=== PATIENT | male | born 1965 | race Caucasian/White ===

== ENCOUNTER 2024-03-13 15:22 | Emergency (ER) | payer OTHER, SELFPAY ==
[2024-03-13] VITALS (23 sets, daily range): BP systolic 115–165; BP diastolic 64–90; PULSE 71–91; RESP 13–23; TEMP 36.7–37.2; O2SAT 91–98; BMI 27.3
--- NOTE | 2024-03-13 15:37 | DI.RAD.S_ITS ---
PROCEDURE: XR SHOULDER RT MIN 2V INDICATIONS: poss dislocation after fall TECHNIQUE: 3 views of the shoulder were acquired. COMPARISON: None. FINDINGS: Bones: There is anterior dislocation of the humeral head with associated tuberosity fracture. No discrete fracture of the glenoid is identified. The acromioclavicular joint is maintained. No suspicious bony lesions. Visualized ribs appear intact. Soft tissues: No suspicious soft tissue calcifications. IMPRESSION: Glenohumeral fracture/dislocation. Dictated by: Nilam Pemberton M.D. on 03/13/2024 at 14:57 Approved by: Nilam Pemberton M.D. on 03/13/2024 at 14:59
--- NOTE | 2024-03-13 16:40 | ED.UPPEXIN ---
HPI - Extremity Injury (Upper) General Chief Complaint: Extremity Injury, Upper Stated Complaint: poss dislocated shoulder Time Seen by Provider: 03/13/24 16:21 Source: patient, RN notes reviewed and old records reviewed Mode of arrival: Wheelchair Limitations: no limitations History of Present Illness HPI narrative: 58-year-old male remote history of colorectal cancer had resection and reversal with chemotherapy patient presents today was working on a ladder fell kind of down words and forward he states sort of on an outstretched arm on his right shoulder. States he did not hit his head denies headache denies neck or back pain. Denies any chest pain or shortness of breath states all of his pain is in his shoulder. Has some bruising and abrasions on his lower extremities but states he has been walking without pain. Denies any abdominal back or flank pain. No loss of consciousness. No nausea or vomiting. No other GI or urinary symptoms. Patient was in the [facility], was seen by EMS in the field did receive Zofran ODT, had bandage placed in his lower extremity and self transported via [place] here to the hospital. Fall occurred about 11:05 a.m. today. Patient states he has not on any daily medications. Does not have a prior history of ostomy with reversal and port around 2004 when he had cancer treatment. Is not on any anticoagulants. Denies any daily prescription medications. No known drug allergies. Denies tobacco, no alcohol or recreational drugs. Related Data Allergies Allergy/AdvReac Type Severity Reaction Status Date / Time No Known Drug Allergies Allergy Verified 03/13/24 15:32 Review of Systems Review of Systems ROS Unobtainable: All systems reviewed & are unremarkable except as noted in HPI and below Patient History Social History Smoking Status: Never smoker Smoking Status: Never smoker Exam Narrative Exam Narrative: GEN: Patient appears in mild distress. HEAD: No evidence of trauma, no raccoon/Painter sign. NECK: Nontender, painless range of motion, trachea midline Negative Nexus criteria, no midline line tenderness, distracting injury, altered mental status, neuro deficit, recent EtOH. EYES: PERRLA, EOMI ENT: External inspection normal, trachea is midline, TM's are normal no hemotypanum, Nares are clear, no septal hematoma, no dental or oral injury, airway is normal and with normal occlusion, No bony tenderness RESP: Chest is nontender and has symmetric movement, no ecchymosis, breath sounds are normal no crackles, wheezes or rales CVS: Heart sounds are normal, no murmur noted, No JVD. ABG/GI: Nontender, soft, normal bowel sounds, no distention, no organomegaly, pelvic rock is negative NEURO: Oriented AOx3, neuro is grossly intact, sensation and motor is normal all 4 extremities moving, cranial nerves II through XII are intact, GCS is 15 PSYCH: Normal mood and affect SKIN: Intact, warm and dry, no crepitus and without decubitus BACK: No CVA tenderness, no vertebral tenderness, no step-off's, no crepitus EXT: Patient was deformity of the right shoulder, equal optometry doctor bilaterally. Tenderness over the shoulder no other bony tenderness of the upper or lower extremities. Hips are nontender, no pedal edema, normal color and temperature, normal range of motion of extremities with normal tendon exam, 2+ pulses in all four extremities. Patient has some ecchymosis of the left anterior saenz but is nontender over the bone. Does have abrasion over the right anterior calf/saenz. Initial Vital Signs Initial Vital Signs: Vital Signs Temperature 98.9 F 03/13/24 15:32 Pulse Rate 71 03/13/24 15:32 Respiratory Rate 17 03/13/24 15:32 Blood Pressure 144/80 H 03/13/24 15:32 Pulse Oximetry 97 03/13/24 15:32 Oxygen Delivery Method Room Air 03/13/24 15:32 Procedures Orthopedic Joint Reduction Joint #1: Time Out Performed: Yes Side: right Joint Reduction Location: shoulder Analgesia: procedural sedation Shoulder Technique Used (if applicable): traction/counter-traction, scapula manipulation and external rotation Post-reduction neuro exam: intact and no change Post-reduction vascular: no change Post Reduction X-Ray Obtained: Yes Post Reduction X-Ray Results: reduced Splint Applied: Yes (Sling placed) Patient Tolerated Procedure: Well and No complications Procedural Sedation Consent signed: Yes Time out performed: Yes Indication: fracture/dislocation reduction ASA Class: II Mallampati Airway Classification: Class II Time of Last PO Intake: 13:45 Preparation: fiber designer applied, pulse oximeter, capnometry used, supplemental O2 applied, suction/airway equipment at bedside and IV secured IV Propofol dose (mg): 300 ED Sedation Level: Moderate (Concious) Patient Tolerated Procedure: Well Complications: hypoxia Interventions: Airway repositioned Additional Comments: Patient had initially 100 mg of propofol, then given 50 mg aliquots for a total of 300 mg. Patient's was still resisting movement and conversant at 250 mg propofol. Course Orders Ordered: ED Orders 03/13/24 15:37 XR shoulder RT min 2V Stat 03/13/24 16:39 XR chest 1V Stat 03/13/24 18:38 XR shoulder LT 1V Stat Discontinued Medications Hydrocodone Bitart/Acetaminophen (Hydrocodone/Acet 5/325 Prepack) 1 bottle MISC DIRECTED ONE Stop: 03/13/24 19:24 Sodium Chloride (Normal Saline 0.9%) 500 mls @ 1,000 mls/hr IV BOLUS ONE Stop: 03/13/24 17:08 Last Infusion: 03/13/24 17:15 Dose: Infused Documented By: Admin: 03/13/24 16:45 Dose: 1,000 mls/hr Documented By: NATHAN Morphine Sulfate (Morphine 4 Mg/Ml Inj) 4 mg IV NOW ONE Stop: 03/13/24 16:40 Last Admin: 03/13/24 16:45 Dose: 4 mg Documented By: NATHAN Morphine Sulfate (Morphine 4 Mg/Ml Inj) 4 mg IV NOW ONE Stop: 03/13/24 18:14 Last Admin: 03/13/24 19:19 Dose: Not Given Documented By: ANNETTE Propofol (Propofol 200 Mg/20 Ml Vial) 85 mg 1 mg/kg (85 mg) IV NOW ONE Stop: 03/13/24 17:27 Last Admin: 03/13/24 18:27 Dose: 85 mg Documented By: [facility] Vital Signs Vital signs: Vital Signs - 8 hr 03/13/24 15:32 03/13/24 16:50 03/13/24 17:00 Temperature 98.9 F Pulse Rate 71 88 88 Respiratory Rate 17 22 15 Blood Pressure 144/80 H Pulse Oximetry 97 98 98 Oxygen Delivery Method Room Air 03/13/24 17:00 03/13/24 17:30 03/13/24 17:30 Temperature Pulse Rate 82 Respiratory Rate 16 Blood Pressure 150/83 H 165/89 H Pulse Oximetry 97 Oxygen Delivery Method 03/13/24 17:40 03/13/24 17:40 03/13/24 17:55 Temperature Pulse Rate 80 77 Respiratory Rate 13 19 Blood Pressure 156/84 H Pulse Oximetry 97 97 Oxygen Delivery Method 03/13/24 17:55 03/13/24 18:00 03/13/24 18:00 Temperature Pulse Rate 78 Respiratory Rate 17 Blood Pressure 155/89 H 134/82 Pulse Oximetry 96 Oxygen Delivery Method 03/13/24 18:05 03/13/24 18:05 03/13/24 18:10 Temperature Pulse Rate 81 Respiratory Rate 17 Blood Pressure 142/86 H 148/90 H Pulse Oximetry 96 Oxygen Delivery Method 03/13/24 18:10 03/13/24 18:15 03/13/24 18:15 Temperature Pulse Rate 80 79 Respiratory Rate 16 15 Blood Pressure 143/84 H Pulse Oximetry 97 96 Oxygen Delivery Method 03/13/24 18:18 03/13/24 18:20 03/13/24 18:20 Temperature Pulse Rate 80 78 Respiratory Rate 16 14 Blood Pressure 145/83 H Pulse Oximetry 95 Oxygen Delivery Method 03/13/24 18:25 03/13/24 18:25 03/13/24 18:26 Temperature 98.1 F Pulse Rate 79 76 Respiratory Rate 14 16 Blood Pressure 153/87 H 139/85 Pulse Oximetry 97 Oxygen Delivery Method 03/13/24 18:30 03/13/24 18:30 03/13/24 18:35 Temperature Pulse Rate 91 H 84 Respiratory Rate Blood Pressure 145/84 H Pulse Oximetry 91 92 Oxygen Delivery Method 03/13/24 18:35 03/13/24 18:40 03/13/24 18:40 Temperature Pulse Rate 88 Respiratory Rate Blood Pressure 146/80 H 119/64 Pulse Oximetry 93 Oxygen Delivery Method 03/13/24 18:45 03/13/24 18:45 03/13/24 18:50 Temperature Pulse Rate 84 Respiratory Rate 22 Blood Pressure 115/76 116/74 Pulse Oximetry 96 Oxygen Delivery Method 03/13/24 18:50 03/13/24 18:55 03/13/24 18:55 Temperature Pulse Rate 87 87 Respiratory Rate 23 22 Blood Pressure 128/77 Pulse Oximetry 96 96 Oxygen Delivery Method 03/13/24 18:59 03/13/24 18:59 03/13/24 19:00 Temperature Pulse Rate 81 82 Respiratory Rate 15 Blood Pressure 139/74 Pulse Oximetry 97 97 Oxygen Delivery Method 03/13/24 19:05 03/13/24 19:05 Temperature Pulse Rate 84 Respiratory Rate Blood Pressure 136/85 Pulse Oximetry 97 Oxygen Delivery Method MDM - Extremity Injury (Upper) Lab Data Labs: Point of Care Testing Glucose POC 109 Imaging Data Chest x-ray: Radiologist's Impression: Close Chest X-Ray (Signed) NilayNilam - 03/13/24 Shoulder X-Ray (Signed) NilayNilam - 03/13/24 Launch?[address] [address] XRay Report Signed Patient: Kirby Ribeiro MR#: [id number] : 1965 Acct:[id number] Age/Sex: 58 / M Date of Service: 03/13/24 Loc: ED Accession Number: [id number] Procedure: XR chest 1V Ordering Provider: Britney Bass D.O. PROCEDURE: XR CHEST 1V INDICATIONS: fall from ladder TECHNIQUE: One view of the chest was acquired. COMPARISON: None. FINDINGS: Surgical changes and devices: None. Lungs and pleura: Lungs are clear. No pleural effusions or pneumothorax. Mediastinum: Mediastinal contours appear normal. Heart size is normal. Bones and chest wall: No suspicious bony lesions. Overlying soft tissues appear unremarkable. IMPRESSION: No acute cardiopulmonary abnormality is seen. Dictated by: Nilam Pemberton M.D. on 03/13/2024 at 16:13 Approved by: Nilam Pemberton M.D. on 03/13/2024 at 16:14 Extremity x-ray #1: Radiologist's Impression: Kirby Ribeiro??58??M??1965 ? Allergy/Adv: No Known Drug Allergies Close Chest X-Ray (Signed) HejanisNilam - 03/13/24 Shoulder X-Ray (Signed) NilayNilam - 03/13/24 Launch?[address] [address] XRay Report Signed Patient: Kirby Ribeiro MR#: [id number] : 1965 Acct:[id number] Age/Sex: 58 / M Date of Service: 03/13/24 Loc: ED Accession Number: [id number] Procedure: XR shoulder RT min 2V Ordering Provider: Britney Bass D.O. PROCEDURE: XR SHOULDER RT MIN 2V INDICATIONS: poss dislocation after fall TECHNIQUE: 3 views of the shoulder were acquired. COMPARISON: None. FINDINGS: Bones: There is anterior dislocation of the humeral head with associated tuberosity fracture. No discrete fracture of the glenoid is identified. The acromioclavicular joint is maintained. No suspicious bony lesions. Visualized ribs appear intact. Soft tissues: No suspicious soft tissue calcifications. IMPRESSION: Glenohumeral fracture/dislocation. Dictated by: Nilam Pemberton M.D. on 03/13/2024 at 14:57 Approved by: Nilam Pemberton M.D. on 03/13/2024 at 14:59 MDM Narrative Medical decision making narrative: 58-year-old male had a fall from about 6 or 7 ft about 11:00 a.m. this morning fell sort of outstretched arm has a what looks like a right shoulder dislocation. Denies other injuries other than some ecchymosis and abrasion to his anterior legs. He has been ambulatory had no loss of consciousness denies headache, neck pain or back pain. States he did not hit his head. Did fall sort of forward. Denies any chest pain but based on his mechanism chest x-ray was obtained. Patient is hemodynamically stable here in the department. Patient states tetanus is up-to-date. Shoulder x-ray shows anterior dislocation humeral head with the associated tuberosity fracture no discrete fracture of the glenoid identified AC joint is maintained. Chest x-ray is negative for acute change. Dr. Noemi Pruett, orthopedic surgery reviewed patient's images. Does see tuberosity fracture but states okay to go ahead and attempt reduction. If there is difficulty or inability to reduce asked for re-contact. Plan for patient to follow up does note there is potential for patient to have worsening of the fracture. Discussed with patient he was agreeable for procedural sedation and reduction. Reviewed that there is a fracture noted but recommended by Orthopedic surgery to go ahead and attempt. Patient is agreeable. Discussed risks versus benefits. Patient did have a dose of pain medication prior to reduction has had improvement in pain. Patient on repeat imaging appears reduced. Repeat shows grossly anatomic alignment postreduction. Reviewed findings with the patient after he was little bit more awake. Patient lives part-time in [facility] and part-time in [place] so was given disc with his images so he has he was available for follow up as needed. Placed in sling he feels much more comfortable we will give a short course of pain medication for the next 24 hours and discussed return precautions. Nursing dress the abrasion/skin tear on his anterior saenz. Discharge Plan Departure Patient Disposition: Home Clinical Impression: Anterior shoulder dislocation, Fracture of greater tuberosity of humerus Instructions: DI for Shoulder Dislocation Activity Restrictions/Additional Instructions: Follow up with Orthopedic surgery for recheck. I would recommend following up to have physical therapy to help strengthen the muscles of your shoulder. You did have a fracture to the tuberosity of the humerus so should have follow up for repeat evaluation. Contacts included below for local orthopedic surgery but if you prefer disc is provided so they can follow up with Orthopedic surgery in [place]. Take acetaminophen up to a 1000 mg every 6 hours and/or ibuprofen up to 600 mg every 6 hours as needed for pain. You can start to slowly increase your range of motion over the next several days. Splint Care: Keep splint clean and dry. Elevated affected body part to decrease swelling. OK to use ice pack on the affected body part. Use for 15-20 minutes each time, for 5-6x per day. If you develop worsening pain, numbness, tingling, discoloration of the affected body part, adjust the sling and either see your doctor for an urgent re-assessment, or return to the Emergency Department. Return to the Emergency Department for any new or worsening symptoms. Referrals: Nomei Pruett MD [Physician] - Stand Alone Forms: Patient Portal/API/Survey
[2024-03-13] MEDS: SODIUM CHLORIDE 0.9% 500 ML 1000 ML IV (16:45)
[2024-03-13] MEDS: MORPHINE 4 MG/ML INJ IV (16:45)
--- NOTE | 2024-03-13 16:53 | PC.NURSE ---
Bedside RN activated modified trauma with charge nurse at bedside based on gut feeling as patient arrived to room.. Pt tremulous with lower extremity muscular contractions. Fell 6-8 feet, caught self with right hand, leading to shoulder dislocation. Initial injury occurred at 1105 and appearing Provider to bedside and evaluated pt right away. Pt remains stable and in good spirits. BG 109 and reports only oral intake today was coffee this am, some water and one andies mint around noon.
[2024-03-13] MEDS: propofoL 200 MG/20 ML VIAL 85 MG IV (18:27)
--- NOTE | 2024-03-13 18:38 | DI.RAD.S_ITS ---
PROCEDURE: XR SHOULDER LT 1V INDICATIONS: reset shoulder TECHNIQUE: 2 views of the shoulder were acquired. COMPARISON: [facility], CR, XR SHOULDER RT MIN 2V, 03/13/2024, 15:37. FINDINGS: Bones: There is no normal glenohumeral alignment post reduction. The humeral head fracture fragment is also in grossly normal alignment. Soft tissues: No suspicious soft tissue calcifications. IMPRESSION: Grossly anatomic alignment post reduction. Dictated by: Nilam Pemberton M.D. on 03/13/2024 at 17:55 Approved by: Nilam Pemberton M.D. on 03/13/2024 at 17:56
[2024-03-13] MEDS: HYDROCODONE/ACET 5/325 PREPACK 1 BOTTLE MISC (19:37)
== END 2024-03-13 19:41 | disposition home or self-care (01) ==
PROVIDERS: Emergency Provider Emergency Medicine
DX: S42.251A Displaced fracture of greater tuberosity of right humerus, initial encounter for closed fracture (principal); S43.014A Anterior dislocation of right humerus, initial encounter; S80.812A Abrasion, left lower leg, initial encounter; S80.811A Abrasion, right lower leg, initial encounter; W11.XXXA Fall on and from ladder, initial encounter
CPT/HCPCS: 23665; 36415; 71045; 73020; 73030; 82962; 96374; 99152; 99285; J2270; J2704